=== PATIENT | female | born 1960 | race Two or more races ===

== ENCOUNTER 2025-02-01 08:17 | Outpatient (CLI) | payer OTHER ==
[2025-02-01 08:42] LABS: Basophils # (auto) 0.1 10 ^3/uL (0-0.2); Basophils % (auto) 1.3 % (0.0-2.0); Eosinophils # (auto) 0.1 10 ^3/uL (0-0.8); Eosinophils % (auto) 2.1 % (0.0-7.0); Hematocrit 43.8 % (36.0-46.0); Lymphocytes # (auto) 1.3 10 ^3/uL (0.4-5.4); Lymphocytes % (auto) 30.8 % (10.0-50.0); Mean Corpuscular Hemoglobin 32.4 pg (28.0-32.0); Mean Corpuscular Hgb Conc. 34.3 g/dL (32.0-36.0); Mean Corpuscular Volume 94.4 fL (80.0-100.0); Monocytes # (auto) 0.6 10 ^3/uL (0-1.3); Monocytes % (auto) 13.4 % (0.0-12.0); Neutrophils # (auto) 2.2 10 ^3/uL (1.6-8.6); Neutrophils % (auto) 52.4 % (37.0-80.0); Nucleated Red Blood Cells % 0.2 %; Platelet Count (auto) 265 10^3/uL (140-450); Red Blood Cells 4.65 10^6/uL (4.0-5.20); Red Cell Distribution Width 12.8 % (11.8-14.3); White Blood Cell 4.3 10^3/uL (4.4-10.8)
[2025-02-01 08:51] LABS: Urine Bacteria FEW /hpf (None Seen); Urine Blood Negative /uL (Negative); Urine Clarity Clear (Clear); Urine Color Light-Yellow (Yellow); Urine Protein, UAD Negative (Negative); Urine Specific Gravity 1.008 (1.001-1.035); Urine Squamous Epithelial Cell FEW /hpf (<5); Urine Urobilinogen Normal (Negative); Urine WBC < 1 /HPF (0-5); Urine pH 7.5 (5.0-9.0)
[2025-02-01 09:16] LABS: Alanine Aminotransferase 26 U/L (7-40); Albumin 4.6 g/dL (3.2-4.8); Alkaline Phosphatase 49 U/L (46-116); Anion Gap 8 (5-15); Aspartate Aminotransferase 26 U/L (<34); BUN/Creatinine Ratio 20.3 (10.0-20.0); Bilirubin, Total 1.2 mg/dL (0.2-1.0); Blood Urea Nitrogen 16 mg/dL (9-23); Calcium 9.5 mg/dL (8.7-10.4); Carbon Dioxide 29 mmol/L (20-31); Chloride 102 mmol/L (98-107); Glucose 91 mg/dL (74-106); Sodium 139 mmol/L (136-145); Total Protein 7.2 g/dL (5.7-8.2)
[2025-02-01 09:30] LABS: Triglycerides 73 mg/dL (< 150)
[2025-02-01 09:31] LABS: LDL Cholesterol 77 mg/dL (< 100)
[2025-02-01 09:32] LABS: Cholesterol 181 mg/dL (< 200); HDL Cholesterol 86 mg/dL (40-59)
== END 2025-02-01 17:00 | disposition home or self-care (01) ==
LOC: LAB 08:17
PROVIDERS: ATTEND Internal Medicine Hematology & Oncology
DX: E04.1 Nontoxic single thyroid nodule (principal)
CPT/HCPCS: 36415; 80053; 80061; 81001; 82670; 83036; 84403; 84443; 85025

== ENCOUNTER → 2025-05-31 | Outpatient (CLI) | payer OTHER ==
[2025-05-31 08:02] LABS: Hematocrit 44.2 % (36.0-46.0); Hemoglobin 14.7 g/dL (12.2-16.2); Mean Corpuscular Hemoglobin 30.6 pg (28.0-32.0); Mean Corpuscular Volume 91.7 fL (80.0-100.0); Nucleated Red Blood Cells % 0.2 %
[2025-05-31 12:13] LABS: Alanine Aminotransferase 30 U/L (7-40); Albumin 4.6 g/dL (3.2-4.8); Alkaline Phosphatase 52 U/L (46-116); Anion Gap 10 (5-15); Bilirubin, Total 1.0 mg/dL (0.2-1.0); Calcium 9.8 mg/dL (8.7-10.4); Carbon Dioxide 27 mmol/L (20-31); Chloride 103 mmol/L (98-107); Cholesterol 195 mg/dL (< 200); Glucose 85 mg/dL (74-106); Potassium 4.2 mmol/L (3.5-5.1); Sodium 140 mmol/L (136-145); Total Protein 7.5 g/dL (5.7-8.2); Triglycerides 65 mg/dL (< 150)
[2025-05-31 12:35] LABS: HDL Cholesterol 103 mg/dL (40-59)
[2025-05-31 15:44] LABS: BUN/Creatinine Ratio 15.7 (10.0-20.0); Blood Urea Nitrogen 13 mg/dL (9-23)
== END | disposition home or self-care (01) ==
LOC: LAB 07:19
PROVIDERS: ATTEND Internal Medicine Hematology & Oncology
DX: E04.1 Nontoxic single thyroid nodule (principal); K63.5 Polyp of colon; M25.551 Pain in right hip; M79.601 Pain in right arm; R10.11 Right upper quadrant pain; Z00.01 Encounter for general adult medical examination with abnormal findings
CPT/HCPCS: 36415; 80053; 80061; 82306; 82728; 83036; 84443; 85025